=== PATIENT | female | born 1990 | race Caucasian/White ===

== ENCOUNTER 2016-11-06 12:45 | Emergency (ER) | payer MEDICAID ==
[2016-11-06 15:08] VITALS: BP 106/68
== END 2016-11-06 15:08 | disposition home or self-care (01) ==
LOC: ED 12:45
DX: S13.4XXA Sprain of ligaments of cervical spine, initial encounter (principal); H10.9 Unspecified conjunctivitis; X58.XXXA Exposure to other specified factors, initial encounter; Y93.89 Activity, other specified; Y99.8 Other external cause status; Y92.89 Other specified places as the place of occurrence of the external cause
CPT/HCPCS: J1885; J3360

== ENCOUNTER 2017-11-20 14:42 | Emergency (ER) | payer MEDICAID ==
[~2017-11-20] VITALS: Ht 162.6 cm; Wt 91.2 kg
[2017-11-20 14:45] VITALS: Ht 162.6 cm; Wt 91.2 kg
[2017-11-20 15:59] LABS: PLATELET COUNT 257 x10^3mcL (130-400); RED CELL DISTRIBUTION WIDTH 12.3 % (11.5-14.5)
[2017-11-20 16:09] LABS: CALCIUM 9.3 mg/dL (8.5-10.1); CARBON DIOXIDE 26.3 mmol/L (21-32); CHLORIDE SERUM 103 mmol/L (98-107); CREATININE SERUM 0.7 mg/dL (0.6-1.0); GFR1 > 60 mL/min; GLUCOSE SERUM 87 mg/dL (74-106); SODIUM SERUM 141 mmol/L (136-145)
[2017-11-20 16:14] LABS: ALBUMIN 3.9 g/dL (3.4-5.0); ALKALINE PHOSPHATASE 60 U/L (46-116); ALT/SGPT 44 U/L (14-59); AST/SGOT 22 U/L (15-37); BILIRUBIN TOTAL 0.5 mg/dL (0.20-1.00); TOTAL PROTEIN, SERUM 8.1 g/dL (6.4-8.2)
[2017-11-20 18:08] VITALS: BP 142/72
== END 2017-11-20 18:41 | disposition home or self-care (01) ==
LOC: ED 14:42
PROVIDERS: Emergency Medicine
DX: R07.89 Other chest pain (principal)
CPT/HCPCS: 36415

== ENCOUNTER 2019-03-29 23:44 | Emergency (ER) | payer MEDICAID ==
[~2019-03-29] VITALS: Ht 157.5 cm; Wt 87.1 kg
[2019-03-29 23:53] VITALS: Ht 157.5 cm; Wt 87.1 kg
[2019-03-30 06:30] VITALS: BP 111/69
== END 2019-03-30 06:30 | disposition home or self-care (01) ==
LOC: ED 23:44
DX: J02.8 Acute pharyngitis due to other specified organisms (principal); J02.9 Acute pharyngitis, unspecified
CPT/HCPCS: J1100; J8540